=== PATIENT | female | born 1935 | race Caucasian/White ===

== ENCOUNTER → 2022-03-22 13:28 | Outpatient (CLI) | payer MEDICARE, SELFPAY ==
--- NOTE | ~2022-03-22 | XR_ITS ---
XR hip LT min 2V DATE: 03/22/2022 14:01 INDICATION: Left hip pain TECHNIQUE: AP and lateral views COMPARISON: None FINDINGS: Osteopenia. No fracture or dislocation, avascular necrosis or bone destruction of the left hip. Left hip joint sp megha appears relatively well preserved. The pubic symphysis and sacroiliac joints are unremarkable. Degenerative disc disease in the lower lumbar area. IMPRESSION: Osteopenia; no significant abnormality of the left hip Reviewed, dictated and finalized at location A.
--- NOTE | ~2022-03-22 | XR_ITS ---
XR lumbar spine 2-3V DATE: 03/22/2022 14:01 INDICATION: Chronic bilateral low back pain TECHNIQUE: AP, lateral, coned lateral lumbosacral views COMPARISON: None FINDINGS: Osteopenia. Mild thoracolumbar dextroscoliosis. Included lower thoracic and lumbar pedicles are intact. There are 6 functional lumbar vertebrae. There is moderate loss of height and anterior wedging of L1, likely chronic. No other lumbar spine fr acture is detected. There is prominent degenerative disc disease at T11-12. There is moderate degenerative disc disease a t L1-2, mild degenerative disc disease at L2-3, L3-4 and L4-5. There is moderately prominent degenerative disc disease at L5 6. There is severe degenerative disc disease and grade 1 anterolisthesis at L6-sacrum. There is prominen t degenerative change at the apophyseal joints of the lower lumbar and lumbosacral area. The sacroiliac joints appear normal. There is extensive calcification of the abdominal aorta and iliac arteries; no evidence of abdominal aortic aneurysm. IMPRESSION: Osteopenia Probable chronic compression fracture of first functional lumbar vertebra Multilevel degenerative disc disease, most prominent between L6 and sacrum Degenerative changes apophyseal joints with associated grade 1 anterolisthesis at L6-sacrum Reviewed, dictated and finalized at location A.
== END ==
PROVIDERS: PCP Family Medicine; Visit Provider Family Medicine
DX: M85.852 Other specified disorders of bone density and structure, left thigh (principal); M85.88 Other specified disorders of bone density and structure, other site; M51.36 Other intervertebral disc degeneration, lumbar region
CPT/HCPCS: 72100; 73502

== ENCOUNTER 2023-09-08 18:58 | Emergency (ER) | payer MEDICARE, SELFPAY ==
[2023-09-08 19:17] VITALS: BP 138/52; PULSE 79; RESP 16; TEMP 36; O2SAT 98
--- NOTE | 2023-09-08 20:22 | ED.NECK ---
HPI - Neck Pain/Injury General Chief Complaint: Neck Pain/Injury Stated Complaint: Neck Pain Time Seen by Provider: 09/08/23 20:01 Source: patient, family (Cousin) and RN notes reviewed Mode of arrival: ambulatory Limitations: no limitations History of Present Illness HPI Narrative: Patient presents today complaining of neck pain and spasms since last night. Denies radiation of pain, numbness or tingling. Pain increases with movement of the neck. States she has episodes like this when she feels stressed. She has had episodes similar to this several times in the past. She has been taking Anacin (aspirin and caffeine pill) and using a heating pad without relief. Currently rates her pain 10/10. She does have history of back surgery, but believes it was in her thoracic spine. Related Data Home Medications Medication Instructions Recorded Confirmed duloxetine 30 mg capsule,delayed 30 mg PO DAILY 09/08/23 09/08/23 release famotidine 20 mg tablet 20 mg PO DAILY 09/08/23 09/08/23 flash glucose scanning reader 09/08/23 09/08/23 ([employer] Meliza 2 [place]) glipizide 10 mg tablet 10 mg PO DAILY 09/08/23 09/08/23 insulin degludec 200 unit/mL (3 200 unit subcut WEEKLY 09/08/23 09/08/23 mL) subcutaneous pen (Tresiba FlexTouch U-200 insulin) levothyroxine 75 mcg tablet 75 mcg PO DAILY 09/08/23 09/08/23 metformin 500 mg tablet,extended 1,000 mg PO DAILY 09/08/23 09/08/23 release 24 hr Allergies Allergy/AdvReac Type Severity Reaction Status Date / Time No Known Allergies Allergy Verified 09/08/23 19:11 Review of Systems Review of Systems: CONSTITUTIONAL: Denies body aches, fever, chills, or sweats. EYES: Denies visual changes, redness, or discharge. ENT: Denies rhinorrhea, congestion, sore throat, or otalgia. CARDIOVASCULAR: Denies chest pain, palpitations, or edema. RESPIRATORY: Denies cough or dyspnea. GASTROINTESTINAL: Denies abdominal pain, nausea, vomiting, or diarrhea. GENITOURINARY: Denies dysuria or hematuria. SKIN: Denies rash, itching, or wounds. MUSCULOSKELETAL: + neck pain. NEUROLOGIC: Denies headache, numbness, tingling, or weakness. PSYCH: Denies depression or anxiety. [facility] Past Medical History Medical History (Updated 09/08/23 @ 20:26 by Sara Giordano, LABORATORY CLERK, ) Diabetes Hypothyroidism Comments At time of signature, I have reviewed and agree with nursing past medical, surgical, social and family history unless otherwise noted. Please see nursing chart for further information. There is no relevant family history pertinent to the presenting complaint Exam Narrative: GENERAL: Well-appearing, well-nourished, and in no acute distress. HEAD: Normocephalic, atraumatic. EYES: EOMI. No redness or drainage. Conjunctivae normal. ENT: Mucous membranes pink and moist. Nares clear. No rhinorrhea. TMs normal bilaterally. Throat normal. Uvula midline. NECK: Decreased range of motion due to pain. Patient is tender in the bilateral paraspinal muscles. No spinal tenderness. supple. No lymphadenopathy. CHEST: No respiratory distress. EXTREMITIES: Normal range of motion. No edema. SKIN: Warm, dry, no rash. Capillary refill normal. Normal skin turgor. NEURO: No focal deficits. Alert and oriented x3. Gait steady. PSYCH: Normal affect. No signs of depression or anxiety. Course Course Level of Care: Express Care Visit Vital Signs Vital signs: Vital Signs Temperature 96.8 F L 09/08/23 19:17 Pulse Rate 79 09/08/23 19:17 Respiratory Rate 16 09/08/23 19:17 Blood Pressure 138/52 L 09/08/23 19:17 Pulse Oximetry 98 09/08/23 19:17 Oxygen Delivery Room Air 09/08/23 19:17 Temperature 96.8 F L 09/08/23 19:17 Pulse Rate 79 09/08/23 19:17 Respiratory Rate 16 09/08/23 19:17 Blood Pressure 138/52 L 09/08/23 19:17 Pulse Oximetry 98 09/08/23 19:17 Oxygen Delivery Room Air 09/08/23 19:17 Reviewed MDM - Neck Pain/Injury MDM Narrative Medical
== END 2023-09-08 20:28 | disposition home or self-care (01) ==
PROVIDERS: Emergency Provider Nurse Practitioner; PCP Family Medicine Sports Medicine
DX: M62.838 Other muscle spasm (principal); E11.9 Type 2 diabetes mellitus without complications; E03.9 Hypothyroidism, unspecified
CPT/HCPCS: 99212; G0463

== ENCOUNTER 2024-04-29 11:38 | Emergency (ER) | payer MEDICARE, SELFPAY ==
[2024-04-29 11:49] VITALS: BP 132/46; PULSE 67; RESP 18; TEMP 36.7; O2SAT 97
[2024-04-29 12:02] LABS: EDUAAPPEAR Clear; EDUABILI Negative; EDUABLOOD 2+; EDUACOLOR1 Yellow; EDUAGLUCOSE Negative; EDUAKETONE Negative; EDUALEUKO 2+; EDUANITRATE Negative; EDUAPH 5.5; EDUAPROTEIN Negative; EDUAUROBILI 0.2
--- NOTE | 2024-04-29 12:09 | ED.GENADULT ---
HPI - General Adult General Chief complaint: Urogenital-Female Stated complaint: Urinary Problems Time Seen by Provider: 04/29/24 12:09 Source: patient, RN notes reviewed and old records reviewed Mode of arrival: ambulatory Limitations: no limitations History of Present Illness HPI narrative: patient presents with complaints of urinary frequency and burning that began this morning. She denies any back pain or abdominal pain. She denies any fever, chills, sweats. She denies any nausea or vomiting. She voices no other concerns or complaints at this time. Related Data Home Medications Medication Instructions Recorded Confirmed duloxetine 30 mg capsule,delayed 30 mg PO DAILY 09/08/23 04/29/24 release famotidine 20 mg tablet 20 mg PO DAILY 09/08/23 04/29/24 flash glucose scanning reader 09/08/23 04/29/24 ([employer] Meliza 2 [place]) glipizide 10 mg tablet 10 mg PO DAILY 09/08/23 04/29/24 insulin degludec 200 unit/mL (3 200 unit subcut WEEKLY 09/08/23 04/29/24 mL) subcutaneous pen (Tresiba FlexTouch U-200 insulin) levothyroxine 75 mcg tablet 75 mcg PO DAILY 09/08/23 04/29/24 Allergies Allergy/AdvReac Type Severity Reaction Status Date / Time No Known Allergies Allergy Verified 04/29/24 11:55 Review of Systems Review of Systems: All systems reviewed & are unremarkable except as noted in HPI and below Constitutional: Constitutional: Reports no additional constitutional complaints ENT: Reports system reviewed and no additional complaints, except as documented Cardiovascular: Cardiovascular: Reports no additional cardiovascular complaints Respiratory: Respiratory: Reports no additional respiratory complaints Gastrointestinal: Gastrointestinal: Reports no additional gastrointestinal complaints Genitourinary: Genitourinary: Reports nocturia, Reports dysuria and Reports urinary urgency [facility] Past Medical History Medical History Diabetes Hypothyroidism Comments At the time of my signature, I reviewed and agree with the nursing past medical, surgical, social, and family history. There is no relevant family history pertinent to the patient complaint. Exam Const: General: cooperative, no acute distress, alert and awake Orientation/consciousness: oriented to person, oriented to place and oriented to time HENMT: Head: normal to inspection Resp: Effort & Inspection: normal respiratory effort and able to speak in complete sentences Auscultation: clear to auscultation bilaterally, no crackles, no rales, no rhonchi and no wheezes Cardio: Palpation: normal PMI Rate: regular rate Rhythm: regular rhythm Heart sounds: S1 normal heart sound present and S2 normal heart sound present GI: GI Palp: No abdominal tenderness : General: Yes bladder normal to palpation and Yes no CVA tenderness Back/Spine/Pelvis: Back: no CVA tenderness Neuro: General: oriented to person, oriented to place and oriented to time Cranial nerves: Yes CN's II-XII intact bilaterally Psych: Appearance: grossly normal Thought process: Normal thought process present Insight: Good insight present (Psych) Judgement: Good judgement present (Psych) Course Course Level of Care: Express Care Visit Vital Signs Vital signs: Vital Signs Temperature 98.0 F 04/29/24 11:49 Pulse Rate 67 04/29/24 11:49 Respiratory Rate 18 04/29/24 11:49 Blood Pressure 132/46 L 04/29/24 11:49 Pulse Oximetry 97 04/29/24 11:49 Oxygen Delivery Room Air 04/29/24 11:49 Temperature 98.0 F 04/29/24 11:49 Pulse Rate 67 04/29/24 11:49 Respiratory Rate 18 04/29/24 11:49 Blood Pressure 132/46 L 04/29/24 11:49 Pulse Oximetry 97 04/29/24 11:49 Oxygen Delivery Room Air 04/29/24 11:52 Reviewed Medical Decision Making MDM Narrative Medical decision making narrative: UA concerning for UTI. Patient with normal physical exam. Nontoxic appearance. Stable for di
== END 2024-04-29 12:15 | disposition home or self-care (01) ==
PROVIDERS: Emergency Provider Nurse Practitioner Family; PCP Family Medicine Sports Medicine
DX: N39.0 Urinary tract infection, site not specified (principal); B96.20 Unspecified Escherichia coli [E. coli] as the cause of diseases classified elsewhere; E11.9 Type 2 diabetes mellitus without complications; Z79.4 Long term (current) use of insulin; Z79.84 Long term (current) use of oral hypoglycemic drugs; E03.9 Hypothyroidism, unspecified
CPT/HCPCS: 81003; 87077; 87086; 87088; 87186; 99213; G0463

== ENCOUNTER 2024-05-08 10:32 | Emergency (ER) | payer MEDICARE, SELFPAY ==
--- NOTE | 2024-05-08 10:42 | ED.GENADULT ---
HPI - General Adult General Chief complaint: Skin/Abscess/Foreign Body Stated complaint: rash Time Seen by Provider: 05/08/24 10:42 Source: patient Mode of arrival: ambulatory Limitations: no limitations History of Present Illness HPI narrative: 88-year-old female patient presents to the [facility] with complaints of a rash to bilateral lower extremities that started yesterday. Patient states it does not itch there is no open wounds and has not been bothering her patient was placed on Macrobid for a UTI infection last week and is almost done with the antibiotic. Patient denies any new soaps lotions or detergents. Denies being outside recently. Related Data Home Medications Medication Instructions Recorded Confirmed duloxetine 30 mg capsule,delayed 30 mg PO DAILY 09/08/23 05/08/24 release famotidine 20 mg tablet 20 mg PO DAILY 09/08/23 05/08/24 flash glucose scanning reader 09/08/23 05/08/24 ([employer] Meliza 2 [place]) glipizide 10 mg tablet 10 mg PO DAILY 09/08/23 05/08/24 insulin degludec 200 unit/mL (3 200 unit subcut WEEKLY 09/08/23 05/08/24 mL) subcutaneous pen (Tresiba FlexTouch U-200 insulin) levothyroxine 75 mcg tablet 75 mcg PO DAILY 09/08/23 05/08/24 Allergies Allergy/AdvReac Type Severity Reaction Status Date / Time No Known Allergies Allergy Verified 05/08/24 10:40 Review of Systems Review of Systems: CONSTITUTIONAL: Denies fever, chills, or sweats. EYES: Denies visual changes, redness, or discharge. ENT: Denies rhinorrhea, congestion, sore throat, or otalgia. CARDIOVASCULAR: Denies chest pain, palpitations, or edema. RESPIRATORY: Denies cough or dyspnea. GASTROINTESTINAL: Denies abdominal pain, nausea, vomiting, or diarrhea. GENITOURINARY: Denies dysuria or hematuria. SKIN: Positive rash to bilateral lower extremities x2 days MUSCULOSKELETAL: Denies back pain, joint pain, or myalgia. NEUROLOGIC: Denies headache, numbness, or weakness. PSYCHIATRIC: Denies anxiety or depression. [facility] Past Medical History Medical History Diabetes Hypothyroidism Comments At the time of my signature I agree with nursing past medical history, surgical, social, and family history. There is no relevant family history pertinent to the presenting complaint. Exam Narrative: GENERAL: Well-appearing, well-nourished, and in no acute distress. HEAD: Normocephalic, atraumatic. EYES: PERRLA and EOMI. ENT: Nares clear, no rhinorrhea or epistaxis. Mucous membranes moist. NECK: Supple. No lymphadenopathy CHEST: Clear to auscultation. No respiratory distress. HEART: Regular rate and rhythm. No murmur heard. Normal peripheral pulses. ABDOMEN: Soft, nontender, nondistended, normal active bowel sounds. EXTREMITIES: Normal range of motion. No edema. SKIN: Warm, dry, patient has erythemic flat macules noted to bilateral lower extremities the knee. Is no drainage. Does not itch. NEURO: No focal deficits. Alert and oriented x3. Course Course Level of Care: Express Care Visit Vital Signs Vital signs: Vital Signs Temperature 36.7 C 05/08/24 10:44 Pulse Rate 72 05/08/24 10:44 Respiratory Rate 18 05/08/24 10:44 Blood Pressure 122/59 L 05/08/24 10:44 Pulse Oximetry 96 05/08/24 10:44 Oxygen Delivery Room Air 05/08/24 10:44 Temperature 36.7 C 05/08/24 10:44 Pulse Rate 72 05/08/24 10:44 Respiratory Rate 18 05/08/24 10:44 Blood Pressure 122/59 L 05/08/24 10:44 Pulse Oximetry 96 05/08/24 10:44 Oxygen Delivery Room Air 05/08/24 10:44 Vital signs reviewed Medical Decision Making MDM Narrative Medical decision making narrative: Discussed with patient it appears that she might have an immune response to the antibiotic and especially that the rash is not bothering her most likely will go away after she finishes the antibiotic. That does not mean that she is allergic to the antibiotic but they can just being imm
[2024-05-08 10:44] VITALS: BP 122/59; PULSE 72; RESP 18; TEMP 36.7; O2SAT 96
== END 2024-05-08 10:59 | disposition home or self-care (01) ==
PROVIDERS: Emergency Provider Nurse Practitioner Family
DX: R21 Rash and other nonspecific skin eruption (principal); E11.9 Type 2 diabetes mellitus without complications; E03.9 Hypothyroidism, unspecified
CPT/HCPCS: 99211; G0463

== ENCOUNTER 2024-05-10 10:37 | Emergency (ER) | payer MEDICARE, SELFPAY ==
[2024-05-10 10:50] VITALS: BP 125/77; PULSE 80; RESP 18; TEMP 36.8; O2SAT 96
--- NOTE | 2024-05-10 11:41 | ED.SKABFB ---
HPI - Skin/Abscess/Foreign Bdy General Chief complaint: Extremity Problem,Nontraumatic Stated complaint: lt foot pain Time Seen by Provider: 05/10/24 11:49 Source: patient, RN notes reviewed and old records reviewed Mode of arrival: ambulatory Limitations: no limitations History of Present Illness HPI narrative: patient presents to [facility] with complaints of pain, redness, swelling to right 3rd toe. She reports 1 week ago she put on a pair of shoes that was too tight, developed to open wounds to the affected area. She did not think much of it until the affected toe awakened her from sleep last night secondary to pain. She reports that she now has redness that was not present, increasing pain. She denies any fever, chills, sweats. She denies any more recent injury or trauma. She voices no other concerns or complaints at this time. She is observed ambulating with a steady gait. Related Data Home Medications Medication Instructions Recorded Confirmed duloxetine 30 mg capsule,delayed 30 mg PO DAILY 09/08/23 05/10/24 release famotidine 20 mg tablet 20 mg PO DAILY 09/08/23 05/10/24 flash glucose scanning reader 09/08/23 05/08/24 ([employer] Meliza 2 [place]) glipizide 10 mg tablet 10 mg PO DAILY 09/08/23 05/10/24 insulin degludec 200 unit/mL (3 200 unit subcut WEEKLY 09/08/23 05/10/24 mL) subcutaneous pen (Tresiba FlexTouch U-200 insulin) levothyroxine 75 mcg tablet 75 mcg PO DAILY 09/08/23 05/10/24 Allergies Allergy/AdvReac Type Severity Reaction Status Date / Time No Known Allergies Allergy Verified 05/10/24 11:50 Review of Systems Review of Systems: All systems reviewed & are unremarkable except as noted in HPI and below Constitutional: Constitutional: Reports no additional constitutional complaints ENT: Reports system reviewed and no additional complaints, except as documented Cardiovascular: Cardiovascular: Reports no additional cardiovascular complaints Respiratory: Respiratory: Reports no additional respiratory complaints Gastrointestinal: Gastrointestinal: Reports no additional gastrointestinal complaints Integumentary/Breasts: Skin/Breast: Reports as per HPI, Reports erythema and Reports skin pain PMFSH Past Medical History Medical History Diabetes Hypothyroidism Comments At the time of my signature, I reviewed and agree with the nursing past medical, surgical, social, and family history. There is no relevant family history pertinent to the patient complaint. Exam Const: General: cooperative, no acute distress, alert and awake Orientation/consciousness: oriented to person, oriented to place and oriented to time HENMT: Head: normal to inspection Resp: Effort & Inspection: normal respiratory effort and able to speak in complete sentences Auscultation: clear to auscultation bilaterally, no crackles, no rales, no rhonchi and no wheezes Cardio: Palpation: normal PMI Rate: regular rate Rhythm: regular rhythm Heart sounds: S1 normal heart sound present and S2 normal heart sound present Neuro: General: oriented to person, oriented to place and oriented to time Cranial nerves: Yes CN's II-XII intact bilaterally Extrem: Ankle/foot/toe images: 1. 1-2 mm open area, circular 2. 1-2 mm apbraised area Psych: Appearance: grossly normal Thought process: Normal thought process present Insight: Good insight present (Psych) Judgement: Good judgement present (Psych) Course Course Level of Care: Express Care Visit Vital Signs Vital signs: Vital Signs Temperature 98.3 F 05/10/24 10:50 Pulse Rate 80 05/10/24 10:50 Respiratory Rate 18 05/10/24 10:50 Blood Pressure 125/77 05/10/24 10:50 Pulse Oximetry 96 05/10/24 10:50 Oxygen Delivery Room Air 05/10/24 10:50 Temperature 98.3 F 05/10/24 10:50 Pulse Rate 80 05/10/24 10:50 Respiratory Rate 18 05/10/24 10:50 Blood Pressure 125/77 05/10/24 10
== END 2024-05-10 12:02 | disposition home or self-care (01) ==
PROVIDERS: Emergency Provider Nurse Practitioner Family; PCP Family Medicine Sports Medicine
DX: L03.031 Cellulitis of right toe (principal); E11.9 Type 2 diabetes mellitus without complications; E03.9 Hypothyroidism, unspecified
CPT/HCPCS: 99213; G0463

== ENCOUNTER 2024-05-13 13:57 | Emergency (ER) | payer MEDICARE, SELFPAY ==
--- NOTE | ~2024-05-13 | XR_ITS ---
XR foot LT min 3V Ordering provider: Bonnie Ugalde PA-C History: . 3rd toe cellulitis, SMALL CUTS, PT DIABETIC, . Comparison: None. FINDINGS: BONES: No acute fracture or dislocation. No evidence of osteomyelitis. JOINT SPACES: Normal. No tarsal coalition. SOFT TISSUES: Normal. IMPRESSION: No acute osseous abnormality left foot. No definite evidence of osteomyelitis. Reviewed, dictated and finalized at location A.
[2024-05-13 13:58] VITALS: BP 115/48; PULSE 70; RESP 16; TEMP 36.3; O2SAT 100
--- NOTE | 2024-05-13 14:14 | ED.SKABFB ---
HPI - Skin/Abscess/Foreign Bdy General Chief complaint: Skin/Abscess/Foreign Body Stated complaint: L FOOT ?INFECTION Time Seen by Provider: 05/13/24 14:02 History of Present Illness HPI narrative: 88-year-old female with history of diabetes and hypothyroidism presents to emergency department for concerns for a foot infection. She reports pain and swelling to her left toe. States approximately 1 week ago she was wearing new shoes when he she has rubbed on her left 3rd toe and caused irritation. Shortly after she developed redness and pain to her left toe. She went to urgent care and was prescribed Augmentin a few days ago. States she has been taking this as prescribed without improvement. States her symptoms have not worsened. Denies fever, nausea vomiting. Tdap not up-to-date. Related Data Home Medications Medication Instructions Recorded Confirmed duloxetine 30 mg capsule,delayed 30 mg PO DAILY 09/08/23 05/10/24 release famotidine 20 mg tablet 20 mg PO DAILY 09/08/23 05/10/24 flash glucose scanning reader 09/08/23 05/08/24 ([employer] Meliza 2 [place]) glipizide 10 mg tablet 10 mg PO DAILY 09/08/23 05/10/24 insulin degludec 200 unit/mL (3 200 unit subcut WEEKLY 09/08/23 05/10/24 mL) subcutaneous pen (Tresiba FlexTouch U-200 insulin) levothyroxine 75 mcg tablet 75 mcg PO DAILY 09/08/23 05/10/24 Allergies Allergy/AdvReac Type Severity Reaction Status Date / Time No Known Allergies Allergy Verified 05/10/24 11:50 Review of Systems Review of Systems: All systems reviewed & are unremarkable except as noted in HPI and below PMFSH Past Medical History Medical History Diabetes Hypothyroidism Exam Narrative: GENERAL: Well-appearing, well-nourished, and in no acute distress. HEAD: Normocephalic, atraumatic. NECK: Supple. CHEST: Clear to auscultation. No respiratory distress. HEART: Regular rate and rhythm. No murmur heard. Normal peripheral pulses. EXTREMITIES: LLE: Blanching erythema, tenderness and warmth to the left toe with to superficial healing wounds to the dorsum of the left toe. No active drainage. No induration or fluctuance. No crepitus. Erythema does not extend to the dorsum of the foot. Sensation intact. DP pulse 2 +. SKIN: Warm, dry, no rash. NEURO: No focal deficits. Alert and oriented x3 Course Vital Signs Vital signs: Vital Signs Temperature 97.4 F L 05/13/24 13:58 Pulse Rate 70 05/13/24 13:58 Respiratory Rate 16 05/13/24 13:58 Blood Pressure 115/48 L 05/13/24 13:58 Pulse Oximetry 100 05/13/24 13:58 Oxygen Delivery Room Air 05/13/24 13:58 Temperature 97.4 F L 05/13/24 13:58 Pulse Rate 70 05/13/24 13:58 Respiratory Rate 16 05/13/24 13:58 Blood Pressure 115/48 L 05/13/24 13:58 Pulse Oximetry 100 05/13/24 13:58 Oxygen Delivery Room Air 05/13/24 13:58 MDM - Skin/Abscess/Foreign Bdy MDM Narrative Medical decision making narrative: 88-year-old female with history of diabetes presents to emergency department for left toe redness and pain for approximately 1 week. She has been on Augmentin as prescribed by urgent care for concern for cellulitis without improvement. Symptoms have not worsened. She denies systemic signs of infection. Vitals are stable. She is afebrile nontoxic appearing. Exam is significant for cellulitis to the left 3rd toe with small healing superficial wounds. No evidence of necrosis or abscess. X-ray showed no evidence of osteomyelitis. Overall feel patient is a candidate for outpatient therapy. Will broaden her antibiotics. Advised her to discontinue the Augmentin will start her on Bactrim and Keflex for broad coverage and provide Podiatry follow-up. Also advised to follow-up with her PCP. Strict ED return precautions discussed. She is agreeable to plan verbalized understanding. Discharged in stable condition. Discharge Plan Discharge Clinical
[2024-05-13] MEDS: TETANUS,DIPHTHERIA,AC PERTUSSIS ADULT (0.5 ML) BOOSTRIX IM (14:28)
[2024-05-13] MEDS: SULFAMETHOXAZOLE/TRIMETHOPRIM 800/160 MG DS TABLET 1 TAB PO (14:28)
[2024-05-13] MEDS: CEPHALEXIN 500 MG CAPSULE PO (15:12)
== END 2024-05-13 15:20 | disposition home or self-care (01) ==
PROVIDERS: Emergency Provider Physician Assistant; PCP Family Medicine Sports Medicine
DX: L03.116 Cellulitis of left lower limb (principal); E11.9 Type 2 diabetes mellitus without complications; E03.9 Hypothyroidism, unspecified; Z23 Encounter for immunization
CPT/HCPCS: 73630; 90471; 90715; 96372; 99283; A9270

== ENCOUNTER 2024-05-14 18:20 | Emergency (ER) | payer MEDICARE, SELFPAY ==
--- NOTE | ~2024-05-14 | CT_ITS ---
EXAMINATION: CT abdomen pelvis w con DATE: 05/15/2024 02:11 INDICATION: Abdominal pain. Nausea, vomiting, and diarrhea. TECHNIQUE: Computed tomography (CT) of the abdomen and pelvis was performed with 100 mL Omnipaque 350 intravenous contrast. Automated exposure control and iterative reconstruction technique were employe d. The dose-length product was 331.51 mGy-cm. COMPARISON: None. FINDINGS: The visualized portions of the lung bases demonstrate bilateral atelectasis and chronic int erstitial lung disease. No pleural effusion. The heart size is normal. There are coronary artery calc ifications. No pericardial effusion. There is a small sliding hiatal hernia. There are cysts in the l iver measuring up to 12 mm. The gallbladder, spleen, pancreas, adrenal glands, and kidneys are normal . There is calcified atherosclerosis of the aorta and many of the other arteries. There is diverticul osis of the colon without evidence of diverticulitis. The appendix is not visualized. There is calcif ied atherosclerosis of the aorta and many of the other arteries. 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 There is no significant stenosis of celiac axis or inferior mesenteric artery. Th ere are no pathologically enlarged lymph nodes. There is no free intraperitoneal fluid. 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 There is 5 mm anterolisthesis of L5 on S1. There is severe lumbar and thoracic spondylosis. There is a chronic compression fracture of T12. IMPRESSION: 1. No specific etiology for the patient's symptoms. Reviewed, dictated and finalized at location A.
[2024-05-14 18:37] VITALS: BP 111/39; PULSE 87; RESP 18; TEMP 36.7; O2SAT 94
--- NOTE | 2024-05-14 18:44 | ED.GENADULT ---
HPI - General Adult General Chief complaint: Nausea/Vomiting/Diarrhea <Stevie Mercedes APRN - Last Filed: 05/14/24 18:46> Stated complaint: n/v/d <Stevie Mercedes APRN - Last Filed: 05/14/24 18:46> Time Seen by Provider: 05/14/24 18:45 <Stevie Mercedes APRN - Last Filed: 05/14/24 18:46> patient presents with n/v/d that started 2 days ago. patient states she went to but they didn't help her. patient states she is just weak. patient denies any other symptoms. PE: A&OX3, BS CTA, generalized abdominal pain with palpation, patient moving all extremities <Stevie Mercedes APRN - Last Filed: 05/14/24 18:46> Source: patient <JIMMY Cardenas Last Filed: 05/15/24 03:24> Mode of arrival: ambulatory <JIMMY Cardenas Last Filed: 05/15/24 03:24> Limitations: no limitations <JIMMY Cardenas Last Filed: 05/15/24 03:24> History of Present Illness HPI narrative: Agree with above HPI. Patient was seen in the ED here on and diagnosed with cellulitis of her left 3rd toe. Was prescribed Keflex and Bactrim. Reports she began these medications evening, but developed nausea, vomiting, diarrhea afterwards, which persisted throughout the night. Began feeling weak, dehydrated, lethargic on Friday which prompted here to come here. Does report diffuse abdominal pain, mild nausea currently. Denies fevers. Denies rectal bleeding/melena. <JIMMY Cardenas Last Filed: 05/15/24 03:24> Related Data Home medications: Home Medications Medication Instructions Recorded Confirmed duloxetine 30 mg capsule,delayed 30 mg PO DAILY 09/08/23 05/10/24 release famotidine 20 mg tablet 20 mg PO DAILY 09/08/23 05/10/24 flash glucose scanning reader 09/08/23 05/08/24 (ASSURED INFORMATION SECURITY Mel[facility]) glipizide 10 mg tablet 10 mg PO DAILY 09/08/23 05/10/24 insulin degludec 200 unit/mL (3 200 unit subcut WEEKLY 09/08/23 05/10/24 mL) subcutaneous pen (Tresiba FlexTouch U-200 insulin) levothyroxine 75 mcg tablet 75 mcg PO DAILY 09/08/23 05/10/24 <Stevie Mercedes APRN - Last Filed: 05/14/24 18:46> Allergies/adverse reactions: Allergies Allergy/AdvReac Type Severity Reaction Status Date / Time No Known Allergies Allergy Verified 05/10/24 11:50 <Stevie Mercedes APRN - Last Filed: 05/14/24 18:46> Review of Systems Review of Systems: CONSTITUTIONAL: Denies fever, chills, or sweats. GASTROINTESTINAL: See HPI. MUSCULOSKELETAL: See HPI. NEUROLOGIC: See HPI. <Jhoana Knowles PA-C - Last Filed: 05/15/24 03:24> All systems reviewed & are unremarkable except as noted in HPI and below <Jhoana Knowles PA-C - Last Filed: 05/15/24 03:24> PMFSH Past Medical History Medical History: Medical History Diabetes Hypothyroidism <Stevie Mercedes APRN - Last Filed: 05/14/24 18:46> Exam Narrative: GENERAL: Elderly, well-nourished, non-toxic, in no acute distress. HEAD: Normocephalic, atraumatic. ENT: MMs dry. RESPIRATORY: Airway patent, respirations nonlabored. Clear to auscultation bilaterally, no rales, rhonchi, wheezing. CARDIOVASCULAR: Regular rate and rhythm without murmurs, rubs, or gallops. ABDOMINAL: Soft, mild diffuse tenderness abdomen, no significant focal tenderness, no rebound, nondistended. Normoactive BS. MUSCULOSKELETAL: Moves all extremities. No gross deformities. SKIN: Warm, dry, normal color. NEURO: A&O X3. Speech clear. Cranial nerves II-XII grossly intact. Steady gait. No ataxic movements. PSYCHIATRIC: Appropriate mood and affect. Normal interaction. <JIMMY Cardenas Last Filed: 05/15/24 03:24> Course Vital Signs Vital signs: Vital Signs Temperature 36.7 C 05/14/24 18:37 Pulse Rate 87 05/14/24 18:37 Respiratory Rate 18 05/14/24 18:37 Blood Pressure 111/39 L 05/14/24 18:37 Pulse Oximetry 94
[2024-05-14 19:01] LABS: Basophils Absolute Auto 0.1 K/mm3 (0.0-0.1); Basophils Percent Auto 0.3 % (0.2-1.2); Eosinophils Absolute Auto 0.2 K/mm3 (0-0.3); Eosinophils Percent Auto 0.8 % (0-4.4); Hematocrit 43.8 % (37.0-47.0); Hemoglobin 14.7 g/dL (12.0-15.0); Immature Granulocyte Absolute 0.09 K/mm3 (0.00-0.031); Immature Granulocyte Percent A 0.5 % (0-0.5); Lymphocytes Absolute Auto 0.31 K/mm3 (0.9-3.2); Lymphocytes Percent Auto 1.7 % (18.3-44.2); Mean Corpuscular HGB Conc 33.6 g/dl (32-36); Mean Corpuscular Hemoglobin 29.6 pg (26-34); Mean Corpuscular Volume 88.1 fl (80-100); Monocytes Absolute Auto 0.6 K/mm3 (0.1-0.6); Monocytes Percent Auto 3.2 % (2.6-8.5); Neutrophils Absolute Auto 16.8 K/mm3 (1.3-6.7); Neutrophils Percent Auto 93.5 % (45.5-73.1); Platelet Count Result 161 k/mm3 (150-375); Red Blood Count 4.97 M/mm3 (4.2-5.4); Red Cell Distribution Width 13.6 % (11.5-14.5)
[2024-05-14 19:15] LABS: Alanine Aminotransferase 19 U/L (6-35); Albumin Level 4.3 g/dL (3.5-5.1); Alkaline Phosphatase 64 U/L (38-126); Anion Gap 12 mmol/L (4-12); Aspartate Amino Transferase 24 U/L (14-36); Bilirubin,Total 0.9 mg/dL (0.2-1.3); Blood Urea Nitrogen 15 mg/dL (7-17); Calcium 9.2 mg/dL (8.4-10.2); Carbon Dioxide 25 mmol/L (22-30); Chloride 96 mmol/L (98-107); Estimated CRCL calculation 27 ml/min; Estimated Glomerular Filt Rate 47; Glucose 357 mg/dL (65-110); Lipase 58 U/L (23-300); Potassium 4.8 mmol/L (3.4-5.0); Sodium 133 mmol/L (137-145)
[2024-05-15] VITALS (22 sets, daily range): BP systolic 100–117; BP diastolic 33–48; PULSE 66–69; RESP 14–16; TEMP 36.7–36.8; O2SAT 95–100
[2024-05-15] MEDS: SODIUM CHLORIDE 0.9% IV 1,000 ML 999 ML IV CONT ×2 (01:52→03:30)
[2024-05-15] MEDS: ONDANSETRON INJ 4 MG/2 ML VIAL IV PUSH (01:52)
[2024-05-15 03:52] LABS: Influenza A QL RT-PCR Negative (Negative); Influenza B QL RT-PCR Negative (Negative); RSV RNA, RT-PCR Negative (Negative); SARS-CoV-2 RNA PCR Negative (Negative)
[2024-05-15 06:33] LABS: Add Urine Microscopic? NO; Appearance Urine Clear (Clear); Bilirubin Urine Negative (Negative); Blood Urine Negative (Negative); Color Urine Yellow (Yellow); Glucose Urine UA 1+ mg/dL (Negative); Ketones Urine Negative (Negative); Leukocyte Esterase Ur Negative LEU/UL (Negative); Nitrate Urine Negative (Negative); Protein Urine Negative (Negative); Specific Grav Ur > 1.045 (1.001-1.035); Urobilinogen Urine 0.2 mg/dL (<2.0); pH Urine 5.5 (5.0-9.0)
[2024-05-15 06:36] LABS: Glucose Point of Care 239 mg/dl (65-105)
--- NOTE | 2024-05-15 07:11 | PC.NURSE ---
report to rhonda laurent
== END 2024-05-15 07:51 | disposition home or self-care (01) ==
PROVIDERS: Nurse Practitioner Family; Physician Assistant; Emergency Provider Emergency Medicine; PCP Family Medicine Sports Medicine
DX: R11.2 Nausea with vomiting, unspecified (principal); E86.0 Dehydration; L03.032 Cellulitis of left toe; Z20.822 Contact with and (suspected) exposure to COVID-19; E11.9 Type 2 diabetes mellitus without complications; E03.9 Hypothyroidism, unspecified; Z79.4 Long term (current) use of insulin; Z79.84 Long term (current) use of oral hypoglycemic drugs; Z79.899 Other long term (current) drug therapy
CPT/HCPCS: 36415; 74177; 80053; 81003; 82948; 83690; 83735; 85025; 87637; 96361; 96374; 99284; J2405; J7030; Q9967

== ENCOUNTER 2024-05-17 13:00 | Emergency (ER) | payer MEDICARE, SELFPAY ==
[2024-05-17 14:06] VITALS: BP 124/48; PULSE 69; RESP 12; TEMP 36.4; O2SAT 99
--- NOTE | 2024-05-17 15:06 | ED.LOWEXIN ---
HPI - Extremity Injury (Lower) General Chief Complaint: Extremity Injury, Lower Stated Complaint: toe pain and swelling Time Seen by Provider: 05/17/24 15:06 Source: patient, RN notes reviewed and old records reviewed Mode of arrival: ambulatory Limitations: no limitations History of Present Illness HPI Narrative: patient presents with complaints of continuing pain, redness, swelling to left 3rd toe. She has been treated multiple times for cellulitis to this digit. Unclear if she is taking medications as prescribed. 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 She denies fever, chills, sweats. She reports that initially this problem began from a blister caused by An ill-fitting pair shoes. Related Data Home Medications Medication Instructions Recorded Confirmed duloxetine 30 mg capsule,delayed 30 mg PO DAILY 09/08/23 05/17/24 release famotidine 20 mg tablet 20 mg PO DAILY 09/08/23 05/17/24 glipizide 10 mg tablet 10 mg PO DAILY 09/08/23 05/17/24 insulin degludec 200 unit/mL (3 200 unit subcut WEEKLY 09/08/23 05/17/24 mL) subcutaneous pen (Tresiba FlexTouch U-200 insulin) levothyroxine 75 mcg tablet 75 mcg PO DAILY 09/08/23 05/17/24 Allergies Allergy/AdvReac Type Severity Reaction Status Date / Time No Known Allergies Allergy Verified 05/17/24 14:13 Review of Systems Review of Systems: All systems reviewed & are unremarkable except as noted in HPI and below Constitutional: Constitutional: Reports no additional constitutional complaints ENT: Reports system reviewed and no additional complaints, except as documented Cardiovascular: Cardiovascular: Reports no additional cardiovascular complaints Respiratory: Respiratory: Reports no additional respiratory complaints Gastrointestinal: Gastrointestinal: Reports no additional gastrointestinal complaints [facility] Past Medical History Medical History Diabetes Hypothyroidism Comments At the time of my signature, I reviewed and agree with the nursing past medical, surgical, social, and family history. There is no relevant family history pertinent to the patient complaint. Exam Const: General: cooperative, no acute distress, alert and awake Orientation/consciousness: oriented to person, oriented to place and oriented to time HENMT: Head: normal to inspection Resp: Effort & Inspection: normal respiratory effort and able to speak in complete sentences Auscultation: clear to auscultation bilaterally, no crackles, no rales, no rhonchi and no wheezes Cardio: Palpation: normal PMI Rate: regular rate Rhythm: regular rhythm Heart sounds: S1 normal heart sound present and S2 normal heart sound present Neuro: General: oriented to person, oriented to place and oriented to time Cranial nerves: Yes CN's II-XII intact bilaterally Extrem: Left lower extremity: foot ( Third toe with 2 mm circular wound, no drainage. Entire digit is red/warm) Psych: Appearance: grossly normal Thought process: Normal thought process present Insight: Good insight present (Psych) Judgement: Good judgement present (Psych) Course Course Level of Care: Express Care Visit Vital Signs Vital signs: Vital Signs Temperature 97.6 F 05/17/24 14:06 Pulse Rate 69 05/17/24 14:06 Respiratory Rate 12 05/17/24 14:06 Blood Pressure 124/48 L 05/17/24 14:06 Pulse Oximetry 99 05/17/24 14:06 Oxygen Delivery Room Air 05/17/24 14:06 Temperature 97.6 F 05/17/24 14:06 Pulse Rate 69 05/17/24 14:06 Respiratory Rate 12 05/17/24 14:06 Blood Pressure 124/48 L 05/17/24 14:06 Pulse Oximetry 99 05/17/24 14:06 Oxygen Delivery Room Air 05/17/24 14:06 Reviewed MDM - Extremity Injury (Lower) MDM Narrative Medical decision making narrative: 88-year-old diabetic patient who admits poor compliance with medications presents for cellulitis of the left 3rd toe.
== END 2024-05-17 15:19 | disposition home or self-care (01) ==
PROVIDERS: Emergency Provider Nurse Practitioner Family; PCP Family Medicine Sports Medicine
DX: L03.032 Cellulitis of left toe (principal); E11.9 Type 2 diabetes mellitus without complications; E03.9 Hypothyroidism, unspecified
CPT/HCPCS: 99213; G0463